=== PATIENT | female | born 1990 | race Caucasian/White ===

== ENCOUNTER 2016-07-08 18:36 | Emergency (ER) | payer BC ==
[2016-07-08 17:37] LABS: BASOPHILS 0.4 %; BASOPHILS ABSOLUTE 0.03 10/3/uL (0.0-0.16); EOSINOPHILS 0.6 %; EOSINOPHILS ABSOLUTE 0.04 10/3/uL (0.0-0.53); ER CBC TAT 0 Hrs 07 Mins; HEMATOCRIT 41.6 % (36.0-48.0); HEMOGLOBIN 13.8 g/dL (12.0-16.0); IMMATURE GRANULOCYTES 0.1 %; IMMATURE GRANULOCYTES ABSOLUTE 0.01 10/3/uL (0.0-0.11); LYMPHOCYTES 25.7 %; LYMPHOCYTES ABSOLUTE 1.72 10/3/uL (0.67-4.30); MEAN CORPUS HGB CONC 33.2 g/dL (32.0-36.0); MEAN CORPUSCULAR VOLUME 96.5 fL (80-100); MEAN PLATELET VOLUME 12.1 fL (9.2-13.0); NEUTROPHILS 67.2 %; PLATELET COUNT 203 10/3/uL (150-400); RBC DISTRIBUTION WIDTH 12.4 % (12.0-16.0); RED CELL COUNT 4.31 10/6/uL (4.0-5.6); WHITE BLOOD CELLS 6.7 10/3/uL (4.5-10.5)
[2016-07-08 17:38] LABS: MANUAL DIFF NO %
[2016-07-08 17:47] LABS: ASCORBIC ACID (UR NOT ORDER) 40 (NEG); BILIRUBIN, URINE NEGATIVE (NEG); KETONE, URINE TRACE MG/DL (NEG); LEUKOCYTE ESTERASE(NOT OR NEG (NEG); NITRITE (URINE) NEG (NEG); WBC (NOT ORDERED) (RFLEX) 2 (0-5)
[2016-07-08 17:56] LABS: CALCIUM, SERUM 8.5 MG/DL (8.5-10.4); CHLORIDE, SERUM 111 MMOL/L (96-112); CO2 (CARBON DIOXIDE) 28 MMOL/L (24-34); CREATININE 0.75 MG/DL (0.55-1.02); GFR AFRICAN AMERICAN 128 ML/MIN (>=60); GFR NON AFRICAN AMERICAN 110 ML/MIN (>=60); POTASSIUM, SERUM 3.9 MMOL/L (3.5-5.3); SGOT(AST) 21 U/L (5-40); SGPT(ALT) 39 U/L (5-65); SODIUM, SERUM 144 MMOL/L (135-148); TOTAL BILIRUBIN 0.7 MG/DL (0-1.2); TOTAL PROTEIN 6.8 G/DL (6.0-8.5)
[2016-07-08 17:57] LABS: A/G RATIO 1.4 (0.7-1.9); ALKALINE PHOSPHATASE 62 U/L (45-117); BUN (BLOOD UREA NITROGEN) 16 MG/DL (6-23); GLOBULIN 2.8 G/DL (2.5-4.1); GLUCOSE, SERUM 97 MG/DL (60-99)
[~2016-07-08 18:36] MED LIST: ADDERALL30 MG PO; EFFEX75 PO; KLONO5 PO
[2016-07-14] MEDS ORDERED: SYN075 PO (16:19)
[2016-07-14] MEDS ORDERED: AMITIZA24 PO (16:20)
[2016-07-14] MEDS ORDERED: SUCR PO (16:20)
[2016-07-14] MEDS ORDERED: NORCO1 TA1 PO (16:21)
[2016-07-14] MEDS ORDERED: ZOFRAN4 PO (16:22)
[2016-07-14] MEDS ORDERED: MEDS (16:24)
[2016-07-14] MEDS ORDERED: NEXIUM40 PO (16:47)
[2016-07-14] MEDS ORDERED: LINZESS 290 M290 MCG PO (16:48)
== END 2016-07-08 21:06 | disposition home or self-care (01) ==
LOC: ER 18:36
PROVIDERS: Nurse Practitioner Acute Care
DX: R10.9 Unspecified abdominal pain (principal); F17.200 Nicotine dependence, unspecified, uncomplicated; Z88.8 Allergy status to other drugs, medicaments and biological substances; Z79.899 Other long term (current) drug therapy
CPT/HCPCS: 74022; 74177; 80053; 81001; 83690; 84703; 85025; 96374; 96375; 96376; 99284; J1170; J2405; Q9967

== ENCOUNTER 2016-07-19 10:20 | Day surgery (SDC) | payer BC ==
--- NOTE | ~2016-07-19 | EGD ---
EGD REPORT [facility] [address] [address] NAME: IVETTE STREETER : [birth year] STATUS : REG [facility]#: [id number] AGE: 25 ADM/REG DATE : 07/19/16 MR#: [id number] REPORT SERV DATE: 07/19/16 DICTATED BY: CHA SALVADOR DATE: 07/19/16 REPORT STATUS : Draft TRANSCRIBED BY: [facility] DATE: 07/19/16 Endoscopy Center Patient Name: Ivette Streeter Date of : 1990 Attending MD: CHA SALVADOR MD Procedure Date No Time: 07/19/2016 Procedure: Upper GI endoscopy Indications: Heartburn, Suspected esophageal reflux, Abdominal bloating, Nausea, Weight loss Referring MD: PACO BAER JR Medicines: as per anesthesia Complications: No immediate complications. Procedure: Pre-Anesthesia Assessment: - ASA Grade Assessment: II - A patient with mild systemic disease. After obtaining informed consent, the endoscope was passed under direct vision. Throughout the procedure, the patient's blood pressure, pulse, and oxygen saturations were monitored continuously. The GIF H190 [id number] was introduced through the mouth, and advanced to the third part of duodenum. The upper GI endoscopy was accomplished without difficulty. The patient tolerated the procedure. Findings: The examined esophagus was normal. The entire examined stomach was normal. The cardia and gastric fundus were normal on retroflexion. The examined duodenum was normal. Impression: - Normal esophagus. - Normal stomach. - Normal examined duodenum. Recommendation: - Follow an antireflux regimen. - Continue present medications. Procedure Code(s): --- Professional --- 82816, Esophagogastroduodenoscopy, flexible, transoral; diagnostic, including collection of specimen(s) by brushing or washing, when performed (separate procedure) Diagnosis Code(s): --- Professional --- R12, Heartburn R14.0, Abdominal distension (gaseous) EGD REPORT [facility] [address] [place] [address] NAME: IVETTE STREETER : [birth year] STATUS : REG [facility] PAT#: [id number] AGE: 25 ADM/REG DATE : 07/19/16 MR#: [id number] REPORT SERV DATE: 07/19/16 DICTATED BY: CHA SALVADOR. DATE: 07/19/16 REPORT STATUS : Draft TRANSCRIBED BY: [employer] DATE: 07/19/16 R11.0, Nausea R63.4, Abnormal weight loss CPT copyright 2013 [employer]. All rights reserved. The codes documented in this report are preliminary and upon channel rebuilder review may be revised to meet current compliance requirements. CHA SALVADOR MD 07/19/2016 1:07 PM This report has been signed electronically. Number of Addenda: 0 Note Initiated On: 07/19/2016 12:26 PM Scope Withdrawal Time 0 hours 0 minutes 0 seconds [address] [place] [address]
--- NOTE | ~2016-07-19 | EGD ---
EGD REPORT [facility] [address] [address] NAME: IVETTE STREETER : [birth year] STATUS : REG [facility]#: [id number] AGE: 25 ADM/REG DATE : 07/19/16 MR#: [id number] REPORT SERV DATE: 07/19/16 DICTATED BY: CHA SALVADOR DATE: 07/19/16 REPORT STATUS : Draft TRANSCRIBED BY: [employer] DATE: 07/19/16 Endoscopy Center Patient Name: Ivette Streeter Date of : 1990 Attending MD: CHA SALVADOR MD Procedure Date No Time: 07/19/2016 Procedure: Colonoscopy Indications: Abdominal pain in the left lower quadrant, FH of Colon Cancer -distant relative, Constipation Referring MD: PACO BAER JR Medicines: as per anesthesia Complications: No immediate complications. Procedure: Pre-Anesthesia Assessment: - ASA Grade Assessment: II - A patient with mild systemic disease. After I obtained informed consent, the scope was passed under direct vision. Throughout the procedure, the patient's blood pressure, pulse, and oxygen saturations were monitored continuously. The PCF [id number] was introduced through the anus and advanced to the cecum, identified by appendiceal orifice and ileocecal valve. The colonoscopy was performed without difficulty. The patient tolerated the procedure. The quality of the bowel preparation was adequate to identify polyps. Findings: The perianal and digital rectal examinations were normal. The colon (entire examined portion) appeared normal. Impression: - The entire examined colon is normal. Recommendation: - Repeat colonoscopy at age 49 for surveillance. Procedure Code(s): --- Professional --- 70964, Colonoscopy, flexible, proximal to splenic flexure; diagnostic, with or without collection of specimen(s) by brushing or washing, with or without colon decompression (separate procedure) Diagnosis Code(s): --- Professional --- R10.32, Left lower quadrant pain Z80.0, Family history of malignant neoplasm of digestive organs K59.00, Constipation, unspecified EGD REPORT [facility] [address] [address] NAME: IVETTE STREETER : [birth year] STATUS : REG [facility]#: [id number] AGE: 25 ADM/REG DATE : 07/19/16 MR#: [id number] REPORT SERV DATE: 07/19/16 DICTATED BY: CHA SALVADOR. DATE: 07/19/16 REPORT STATUS : Draft TRANSCRIBED BY: [employer] DATE: 07/19/16 CPT copyright 2013 [employer]. All rights reserved. The codes documented in this report are preliminary and upon wheel loader operator review may be revised to meet current compliance requirements. CHA SALVADOR MD 07/19/2016 1:25 PM This report has been signed electronically. Number of Addenda: 0 Note Initiated On: 07/19/2016 1:04 PM Scope Withdrawal Time 0 hours 7 minutes 56 seconds [address] [address]
[~2016-07-19 10:20] MED LIST changes: +AMITIZA24 PO; +LINZESS 290 M290 MCG PO; +MEDS; +NEXIUM40 PO; +NORCO1 TA1 PO; +SUCR PO; +SYN075 PO; +ZOFRAN4 PO
[2016-07-19 12:45] LABS: CALCIUM, SERUM 8.7 MG/DL (8.5-10.4); CHLORIDE, SERUM 104 MMOL/L (96-112); CO2 (CARBON DIOXIDE) 30 MMOL/L (24-34); CREATININE 0.65 MG/DL (0.55-1.02); GFR AFRICAN AMERICAN 142 ML/MIN (>=60); GFR NON AFRICAN AMERICAN 123 ML/MIN (>=60); GLUCOSE, SERUM 100 MG/DL (60-99); POTASSIUM, SERUM 4.1 MMOL/L (3.5-5.3); SODIUM, SERUM 141 MMOL/L (135-148)
[2016-07-19 12:47] LABS: BUN (BLOOD UREA NITROGEN) 9 MG/DL (6-23)
== END 2016-07-19 23:59 | disposition home or self-care (01) ==
LOC: DMU 10:20
PROVIDERS: Anesthesiology; Internal Medicine Gastroenterology
PROC: 0DJD8ZZ Inspection of Lower Intestinal Tract, Via Natural or Artificial Opening Endoscopic (ICD-10-PCS; principal; 2016-07-19 12:00)
PROC: 0DJ08ZZ Inspection of Upper Intestinal Tract, Via Natural or Artificial Opening Endoscopic (ICD-10-PCS; 2016-07-19 12:00)
DX: K59.00 Constipation, unspecified (principal); R12 Heartburn; R14.0 Abdominal distension (gaseous); R11.0 Nausea; R63.4 Abnormal weight loss; E03.9 Hypothyroidism, unspecified; F17.210 Nicotine dependence, cigarettes, uncomplicated; Z88.8 Allergy status to other drugs, medicaments and biological substances; Z80.0 Family history of malignant neoplasm of digestive organs; Z79.891 Long term (current) use of opiate analgesic; Z79.899 Other long term (current) drug therapy; Z98.51 Tubal ligation status; Z98.890 Other specified postprocedural states
CPT/HCPCS: 80048; 84703; J2405